=== PATIENT | male | born 1985 | race Caucasian/White ===

== ENCOUNTER 2022-10-16 01:14 | Outpatient (CLI) | payer MEDICAID, SELFPAY ==
[2022-10-16] MEDS: Barium Sulfate 2% W/V-Berry Smoothie 450 ML BTL PO ×2 (09:04→09:05)
--- NOTE | 2022-10-16 11:04 | DI.CT_ITS ---
Exam(s) CT ABDOMEN PELVIS W EXAM: CT ABDOMEN PELVIS W CLINICAL HISTORY: LLQ ABD PAIN, R10.32,PALPABLE DEFECT, ? HERNIA TECHNIQUE: Imaging Protocol: Axial computed tomography images with coronal and sagittal reformatted images were created and reviewed CONTRAST MATERIAL: Intravenous: Omnipaque 350 Contrast volume:100 mL Oral: Yes COMPARISON: No exams were available for comparison FINDINGS: ABDOMEN: Lung Bases: Normal where visualized. Liver: There is diffuse decreased attenuation of the liver suggesting fatty infiltration. There is f ocal fatty sparing adjacent to the gallbladder. The liver measures 20 cm long. No measurable mass. Portal, Superior Mesenteric, and Splenic Veins: Unremarkable. Gallbladder and Biliary Tract: No radiodense calculus or dilation. Pancreas: Normal density, no abnormal calcifications or inflammatory process. Spleen: Normal. Adrenals: No masses seen. Kidneys: Normal size, contour and axis. No radiodense stones or obstructive uropathy. No masses seen. There is a circum aortic left renal vein. Abdominal Aorta: Abdominal portion non-dilated. Minimal atherosclerosis. Bowel: There is diverticulosis in the colon but no evidence of acute diverticulitis. No evidence of bowel obstruction or bowel wall thickening. Appendix is unremarkable. Peritoneal Cavity: No ascites, collection or mesenteric inflammatory response. No free air. Lymph Nodes: Within normal limits. Bones: Within normal limits for the patient's age. Soft Tissues: There is a fat containing umbilical hernia. There do appear to be small fat containing inguinal hernias. No anterior abdominal wall hernia or soft tissue mass is appreciated. PELVIS: Bladder: Symmetric distention, no gross wall thickening. Reproductive Organs: Unremarkable as visualized. Lymph Nodes: Within normal limits. Bones: Within normal limits for the patient's age. IMPRESSION: 1. No evidence of an anterior abdominal wall mass. 2. Small fat containing umbilical hernia. 3. Hepatic steatosis and hepatomegaly. 4. Colonic diverticulosis but no evidence of acute diverticulitis. RADIATION DOSE DELIVERED: 1,905.69mGy.cm Total DLP DATA REPOSITORY: All CT scans at this facility are submitted to the National Radiology Data Registry (NRDR) Dose Index Registry (DIR) with the [employer] (ACR). RADIATION OPTIMIZATION: All CT scans at this facility use at least one of these dose optimization te chniques: automated exposure control; mA and/or kV adjustment per patient size (includes targeted exa ms where dose is matched to clinical indication); or iterative reconstruction.
[2022-10-16] MEDS: Omnipaque 350 MG/ML 500 ML BTL-Imaging package IJ (11:08)
== END 2022-10-16 01:34 ==
LOC: DI 01:14
PROVIDERS: PCP Nurse Practitioner; Visit Provider Family Medicine
DX: R10.32 Left lower quadrant pain (principal); K76.0 Fatty (change of) liver, not elsewhere classified; R16.0 Hepatomegaly, not elsewhere classified; K42.9 Umbilical hernia without obstruction or gangrene
CPT/HCPCS: 74177

== ENCOUNTER 2022-10-23 15:34 | Outpatient (REF) | payer MEDICAID, SELFPAY ==
[2022-10-23 14:14] LABS: HGB 15.9 g/dL (13.5-17.5); MCH 28.7 pg (27.0-33.0); MCHC 33.1 % (32.0-36.0); MCV 87 fL (80-95); MPV 11.7 fL (8.0-11.0); Platelet Count 255 10^3/uL (130-400); RBC 5.54 10^6/uL (4.36-5.78); RDW 13.8 % (11.8-14.1); RDW-SD 43.9 fL
[2022-10-23 14:30] LABS: Hemoglobin A1C 5.6 % (<5.7)
[2022-10-23 14:36] LABS: ALT 56 U/L (16-63); AST 29 U/L (15-37); Albumin 4.4 g/dL (3.4-5.0); Alkaline Phosphatase 95 U/L (46-116); Anion Gap 8.5 mmol/L (3-11); BUN 11 mg/dL (7-18); Bilirubin, Total 0.7 mg/dL (0.2-1.0); CO2 27.5 mmol/L (21.0-32.0); CREATININE 0.9 mg/dL (0.70-1.30); Calcium 9.6 mg/dL (8.5-10.1); Calculated LDL 144 mg/dL (<100); Chloride 105 mmol/L (98-107); Cholesterol 218 mg/dL (<200); Estimated GFR 112.81 (mL/min/1.73m2); Glucose 105 mg/dL (74-106); HDL Cholesterol 39 mg/dL (40-60); Lipase 42 U/L (16-77); Potassium 4.2 mmol/L (3.5-5.1); Sodium 141 mmol/L (136-145); TSH (W/Ref FT4) 3.66 uIU/mL (0.36-3.74); Total Protein 7.8 g/dL (6.4-8.2); Triglyceride 175 mg/dL (<150)
[2022-10-23 14:50] LABS: C-Reactive Protein 0.89 mg/dL (0.0-0.3)
[2022-10-27 12:20] LABS: IgA <13 mg/dL (85-499); Interpretation (See Note); Tissue Transglutaminase IgA <1.2 U/mL (<4.0)
== END 2022-10-23 15:35 | disposition home or self-care (01) ==
LOC: NCHCN 15:34
PROVIDERS: PCP Nurse Practitioner; Visit Provider Family Medicine
DX: R10.32 Left lower quadrant pain (principal); K57.90 Diverticulosis of intestine, part unspecified, without perforation or abscess without bleeding; R63.4 Abnormal weight loss; R79.89 Other specified abnormal findings of blood chemistry
CPT/HCPCS: 80053; 80061; 82784; 83516; 83690; 85027; 83036; 84443; 86140

== ENCOUNTER 2022-11-21 06:15 | Day surgery (SDC) | payer MEDICAID, SELFPAY ==
--- NOTE | 2022-11-20 19:37 | W.PM.DSUDISC ---
Date of service: 11/21/22 Time of Service: 09:13 Discharge Plan Disposition Patient Disposition: Home Condition: Good Discharge Details Reason For Visit: Ventral hernia repair Attending Provider: Brennan Jama Primary Care Provider: Ayesha Giordano Home Meds and New Rx's Prescriptions: New tramadol 100 mg tablet 100 mg PO BID PRN (Reason: pain) Qty: 10 0RF Rx Instructions: Take 1 tablet by mouth up to every 12 hours if needed for severe pain. This medication can be broken in half if it is too strong. Do not drive while using this medication. Continued One-A-Day Men's 50 Plus 400-20-370 mcg tablet 1 tab PO DAILY mecobalamin (vitamin B12) 5,000 mcg tablet,disintegrating 5,000 mcg PO DAILY cholecalciferol (vitamin D3) 75 mcg (3,000 unit) tablet 75 mcg PO DAILY ibuprofen 800 MG tablet 800 mg PO TID PRNQty: 30 0RF Discharge Instructions Instructions: Ventral Hernia (GEN) Additional Instructions: Noam, we are able to repair your abdominal wall hernias today without any difficulty. As we talked about in the office, you actually had 2 hernias. One was at your bellybutton, one was slightly above this. They were repaired as a single unit with a permanent mesh implanted behind your rectus muscles. Expect to be sore in the coming days. I have provided a prescription for tramadol to help with your postoperative pain. Please follow the attached instructions with regards to your incision. The dressing that you have on top has a little motor that apply some negative pressure and suction. Please contact the office if you notice any problems with this dressing. It is okay to shower with this. If you have any questions in the meantime, please do not hesitate to let me know. 1. Resume all of your medications. 2. Ice packs and heating pads are fine to use for pain. 3. Okay to use tylenol and ibuprofen over the counter as needed. Use tramadol as needed for severe pain. 4. Leave bandage in place. 5. Shower with warm soapy water. Pat dry. 6. No soaking or tub baths until I see you in the office. 7. No heavy lifting until I see you in the office. 8. Call the office (or go directly to the emergency room after hours) if you notice any of the following: Develop chills (warm to touch), or if you have a thermometer and your temperature is above 101 Difficulty breathing or difficultly swallowing Persistent vomiting Any bleeding ? exceeding one tablespoon 9. Call your physician if the site where your intravenous was started becomes red, swollen, painful, and warm to touch. Referrals: Brennan Jama MD [ [facility] STAFF PHYSICIAN] - (November 28 at 11 AM with myself or Dr. Boss for ava removal) Activity:: No heavy lifting Remove Dressings/Wound Care:: 24 hours Shower/Bathe:: 24 hours Diet:: As Tolerated Discharge Orders Discharge Orders: Discharge Order (Routine); Ordered 11/20/22 Ordered By: Brennan Jama DS: Diagnosis Discharge Diagnosis (1) Ventral hernia: Status: Acute Asessment and Plan: Routine postoperative visit on November 28 for AVA removal
--- NOTE | 2022-11-20 19:39 | ROE_ITS ---
Date of service: 11/21/22 Time of Service: 09:08 Operative Note Operative Note DATE OF PROCEDURE: 11/21/22 PRE-OP DIAGNOSIS: Ventral hernia and umbilical hernia POST-OP DIAGNOSIS: same PROCEDURE: Open ventral and umbilical hernia repairs with retrorectus mesh SURGEON: Brennan Jama [employer] [employer]ICE WORKER: Princess Collins ANESTHESIA TYPE: Local By Surgeon and General LMA/ETT Refer to Anesthesia Record ESTIMATED BLOOD LOSS: 50 PATHOLOGY: none sent COMPLICATIONS: None Patient was transported to: PACU Patient's condition: stable Implants: Bard polypropylene mesh Indications: Noam is a 36-year-old male with a painful ventral hernia that has been increasing in size. Additionally he has an umbilical hernia associated with this Findings: 1 cm umbilical hernia, 2 cm ventral hernia Procedure Description: After the induction of general endotracheal anesthesia, the anesthesia team performed bilateral ultrasound-guided rectus blocks. Next, I prepped and draped the anterior abdominal wall in usual fashion. I made a midline incision and extended it down around the left side of the umbilicus. Careful dissection was used to lift the underside of the umbilicus off of an umbilical hernia defect. The hernia itself was carefully dissected down to the fascia. The greatest dimension of this hernia was about 1 cm. Once the umbilical hernia was freed up from the surrounding soft tissue it was reduced back down to the normal position. I continued this dissection cephalad along some normal-appearing midline fascia. Approximately 3 cm above the umbilical fascial defect was another midline fascial defect. This wound was larger. I would estimated about 2 cm in its greatest dimension. Again, careful dissection was used to free up the hernia sac from the surrounding soft tissues, as well as the fascial edge, and this was also reduced back down into the peritoneal space. Next, because of the proximity of these 2 defects, I opened the midline fascia along its length for accurate visualization. This created 1 midline defect. I then incised the rectus sheath, and carefully dissected the rectus muscle off the posterior fascial elements. Once this was completed, I closed the midline fascia with 2-0 PDS suture imbricating the weakened midline portion as well as the previously mentioned hernia sacs. I then used a Bard 3 x 6 cm polypropylene mesh in the retrorectus position. It was cut to shape. It was affixed to the fascia with interrupted Prolene stitches. I then reduced the rectus muscles back towards the midline overlying the mesh. I closed the anterior fascia defect with another line of running 2-0 PDS suture. Once this was complete, irrigated surgical field. It was hemostatic. I pexied the underside of the umbilicus back down towards the fascia for cosmesis. The subcuticular space was obliterated with interrupted Vicryl stitches. The skin was closed with a running subcuticular suture. A albert negative pressure wound dressing was used on top. The patient was then awakened from anesthesia and transferred to the postanesthesia care unit in good condition.
[2022-11-21] VITALS (12 sets, daily range): BP systolic 94–118; BP diastolic 51–80; PULSE 71–88; RESP 13–20; TEMP 36.1–36.7; O2SAT 84–96; BMI 38.5
[2022-11-21] MEDS: Gabapentin 300 MG CAP 600 MG PO (06:57)
[2022-11-21] MEDS: Celecoxib 200 MG CAP PO (06:58)
--- NOTE | 2022-11-21 07:01 | W.ANESPRE ---
General Info Date of Service Date Performed: 11/21/22 Height: 5 ft 8.25 in Weight: 115.8 kg Body Mass Index (BMI): 38.5 Surgical Procedure: Operation Date: 11/21/22 07:40 Proposed Procedure Side Surgeon p Herniorrhaphy Ventral Brennan Jama MD Meds Allergies and Home Medications Allergies Allergy/AdvReac Type Severity Reaction Status Date / Time No Known Drug Allergies Allergy Unknown Verified 11/21/22 06:30 Home Medication Medication Instructions Recorded ibuprofen 800 mg tablet 800 mg PO TID PRN #30 tabs 07/12/13 cholecalciferol (vitamin D3) 75 75 mcg PO DAILY 10/29/22 mcg (3,000 unit) tablet mecobalamin (vitamin B12) 5,000 5,000 mcg PO DAILY 10/29/22 mcg disintegrating tablet rzqmhbznllcy-ien-rvcbw acid-vit 1 tab PO DAILY 10/29/22 K-lycop 400 mcg-20 mcg-370 mcg tablet (One-A-Day Men's 50 Plus) Current Visit Medications: Current Medications Generic Name Dose Route Start Last Admin Trade Name Tomasq PRN Reason Stop Dose Admin Celecoxib 200 mg 11/21/22 06:00 Celecoxib 200 Mg Cap PO 11/21/22 23:59 PREOP ADIEL Gabapentin 600 mg 11/21/22 06:00 Gabapentin 300 Mg Cap PO 11/21/22 23:59 PREOP ADIEL Ringer's Solution 1,000 mls @ 80 mls/hr 11/21/22 06:00 IV 11/21/22 23:59 INFUSION ADIEL Cefazolin Sodium/Dextrose 2 gm in 50 mls @ 100 mls/hr 11/21/22 06:00 Ancef Duplex IVPB 11/21/22 23:59 PREOP ADIEL IV Miscellaneous Supplies 1 each 11/21/22 06:00 Iv Access IV 11/21/22 23:59 DIRECTED ADIEL Morphine Sulfate 4 mg 11/20/22 19:40 Morphine 4 Mg/Ml Syr IVP Q1H PRN PRN Sodium Chloride 0 ml 11/21/22 06:00 Normal Saline Flush 10 Ml Syr IV 11/21/22 23:59 PRN PRN Sodium Chloride 0 ml 11/21/22 06:00 Normal Saline 10 Ml Vial IJ 11/21/22 23:59 DIRECTED PRN Sterile Water 0 ml 11/21/22 06:00 Water,Injection,Sterile 10 Ml Vial IJ 11/21/22 23:59 DIRECTED PRN Tramadol HCl 100 mg 11/20/22 19:40 Tramadol 50 Mg Tab PO Q6H PRN PRN Pain PFSH Active Problems Active Problems: Problem Status Onset Code Ventral hernia K43.9 Medical History Medical History Comments:: laughing gas' with wisdom teeth extraction Surgical History Surgical History (Updated 11/21/22 @ 06:30 by Vida Servin) History of wisdom tooth extraction pt reports having laughing gas' Tobacco Smoking/Tobacco Use Status: Never Alcohol Alcohol Intake: current Alcohol intake frequency: holidays/special occasions only Substance Use Substance use: Never Substance use type: does not use Vital Signs and Lab Results Vital Signs Most Recent Vital Signs in EMR: Most Recent Vital Signs Temp Pulse Resp BP Pulse Ox 36.5 C 72 16 118/80 96 11/21/22 06:31 11/21/22 06:31 11/21/22 06:31 11/21/22 06:31 11/21/22 06:31 Lab Results Blood Type / Crossmatch: No Data to Display Complete Blood Count: White Blood Count 9.20 10^3/uL (4.4-10.8) 10/23/22 10:50 Red Blood Count 5.54 10^6/uL (4.36-5.78) 10/23/22 10:50 Hemoglobin 15.9 g/dL (13.5-17.5) 10/23/22 10:50 Hematocrit 48.0 % (40.0-50.0) 10/23/22 10:50 Platelet Count 255 10^3/uL (130-400) 10/23/22 10:50 Complete Metabolic Panel: Sodium 141 mmol/L (136-145) 10/23/22 10:50 Potassium 4.2 mmol/L (3.5-5.1) 10/23/22 10:50 Chloride 105 mmol/L (98-107) 10/23/22 10:50 Carbon Dioxide 27.5 mmol/L (21.0-32.0) 10/23/22 10:50 BUN 11 mg/dL (7-18) 10/23/22 10:50 Creatinine 0.9 mg/dL (0.70-1.30) 10/23/22 10:50 Est GFR (CKD-EPI 2020) 112.81 (mL/min/1.73m2) 10/23/22 10:50 Calcium 9.6 mg/dL (8.5-10.1) 10/23/22 10:50 Albumin 4.4 g/dL (3.4-5.0) 10/23/22 10:50 Glucose 105 mg/dL (74-106) 10/23/22 10:50 Hemoglobin A1c 5.6 % (<5.7) 10/23/22 10:50 C-Reactive Protein 0.89 mg/dL (0.0-0.3) H 10/23/22 10:50 Liver Function Panel: Alanine Aminotransferase (ALT/SGPT) 56 U/L (16-63) 10/23/22 10:50 Aspartate Amino Transf (AST/SGOT) 29 U/L (15-37) 10/23/22 10:50 Coagulation Panel: No Data to Display Cardiac Panel: No Data to Display Arterial Blood Gas: No Data to Display Venous Blood Gas: No Data to Display Pancreas Panel: Lipase 42 U/L (16-77) 10/23/22 10:50 Thyroid Panel: Thyroid Stimulating Hormone (TSH) 3.66 uIU/mL (0.36-3.74) 10/23/22 10:50 Infectious Disease: No Data to Display Blood Cultures: No Data to Display Toxicology Panel: No Data to Display Anesthesia Assessment and Plan Anesthesia History Personal History: No History of General Anesthesia Family History: Family History Unknown Exercise Tolerance Exercise Tolerance: Metabolic Equivalents>4 Pertinent Negatives Pertinent Negatives: No Symptoms of GERD, No Major Cardiovascular Symptoms or Complaints, No Major Pulmonary Symptoms or Complaints and No History of CVA/TIA Cardiac & Pulmonary Exam Cardiac Exam: Normal S1/S2 Heart Sounds Pulmonary Exam: Clear Bilateral Breath Sounds Implantable Cardiac Device Does patient have a Pacemaker or an ICD?: No Airway Exam Known Difficult Airway: No Mallampati Class: 1 Mouth Opening: Normal (> 3cm) Thyromental Distance: Less than 3 cm Neck Range of Motion: Full ROM Neck Circumference: Thick Teeth Condition: Normal Dentition ASA Classification ASA Score: ASA 2 Emergency Case?: No NPO Status NPO Status: NPO Clears >2 hours, Solids >8 hours Anesthesia Plan Resuscitation Status: Full Code Anesthesia Technique: General Anesthesia Airway Planned: Endotracheal Tube Pain Management: Surgeon and patient request nerve block (Bilateral rectus sheath blocks) Monitors Used: Standard Monitors
[2022-11-21] MEDS: Lactated Ringers 1,000 ML 80 ML IV (07:10)
[2022-11-21] MEDS: ceFAZolin 2 GM/50 ML BAG IVPB (07:37)
--- NOTE | 2022-11-21 08:05 | W.ANESNERVE ---
Nerve Block Single Injection Procedure Date and Time Date Performed: 11/21/22 Procedure Start: 07:41 Location Where Procedure Performed Procedure Location: Operating Room Procedure Stop: 07:48 Reason Performed: Postoperative Analgesia Requesting Provider: Brennan Jama Timeout Performed Timeout Performed: Yes Monitoring Used ECG, Blood Pressure, SpO2, ETCO2 and See EMR for corresponding vital signs Sterility Sterility: Hand Hygiene, Surgical Cap, Surgical Mask, Sterile Gloves, Sterile Drape/Sheet and Chlorhexidine Sedation Given During Procedure Sedation Given (Indicate Dose Given): No Sedation given Patient Mental Status Patient Mental Status: Performed under general anesthesia Nerve Block 1st Nerve Block: Laterality: Bilateral Block Type: Rectus Sheath (Bilateral) Ultrasound Image Saved?: Yes Needle / Catheter Used: 120mm SonoPlex II Local Anesthetic Bolus (Indicate Dose Given): Injected in 3-5ml increments after negative blood aspiration, Half of Total block solution given into each side and Bupivacaine 0.5% Dose:: 40 ml Additives (Indicate Dose Given): None Ultrasound: Sterile probe cover and gel used Nerve Stimulator: Not Used Paresthesia: None Procedure Tolerated: No Complications Procedure Outcome: Successful Performed By: Pallavi Kam
[2022-11-21] MEDS: Bupivacaine 0.5% Pres-Free W/EPI 30 ML VIAL (08:06)
--- NOTE | 2022-11-21 10:59 | W.ANESPOSTOP ---
Postoperative Evaluation Date, Time and Location Date Performed: 11/21/22 Time Performed: 10:59 Patient Location: Day Surgery Unit Vital Signs Most Recent Imported Vital Signs: Most Recent Vital Signs Temp Pulse Resp BP Pulse Ox 36.7 C 80 19 108/62 93 11/21/22 10:35 11/21/22 10:35 11/21/22 10:35 11/21/22 10:35 11/21/22 10:35 Pain Score Most Recent Pain Score: Most Recent Pain Score Pain Level 4 11/21/22 10:35 Assessment Mental Status: Awake (Alert & Oriented to Patient Baseline) Airway and Respiratory Function: Patent airway with normal (patient baseline) respiratory exam Cardiovascular Function: Hemodynamically Stable Hydration Status: Adequately Hydrated Nausea & Vomiting: No Nausea or Vomiting Pain: Pain is tolerable per patient Peripheral Nerve Block: Regional nerve block not resolved at time of post operative discharge
[2022-11-21] MEDS: traMADol 50 MG TAB 100 MG PO (11:03)
== END 2022-11-21 12:55 | disposition home or self-care (01) ==
PROVIDERS: PCP Family Medicine; Visit Provider Surgery
PROC: (CPT 49593; principal; 2022-11-21 07:30)
DX: K43.9 Ventral hernia without obstruction or gangrene (principal); K42.9 Umbilical hernia without obstruction or gangrene
CPT/HCPCS: 49593; 76942; C1781; J0690; J1100; J1885; J2405

== ENCOUNTER 2022-11-22 20:39 | Emergency (ER) | payer MEDICAID, SELFPAY ==
[2022-11-22] VITALS (20 sets, daily range): BP systolic 102–126; BP diastolic 45–69; PULSE 62–78; RESP 14–20; TEMP 37.1; O2SAT 91–99
--- NOTE | 2022-11-22 20:30 | RT.EKG_ITS ---
APPROVED REPORT Exam: Resting ECG Reason for Exam: syncope Patient Location: E HR:78 bpm ECG Measurements Heart Rate 78 AXIS MD 126 P 19 QRSd 100 QRS -4 QT 381 T 41 QTc 435 Conclusion Sinus rhythm...normal P axis, V-rate 60- 99 sinus rhythm, left axis, normal intervals, non ischemic
--- NOTE | 2022-11-22 20:45 | DI.CT_ITS ---
Exam(s) CT ABDOMEN PELVIS W EXAM: CT ABDOMEN PELVIS W CLINICAL HISTORY: recent hernia surgery, syncope. TECHNIQUE: Imaging Protocol: Axial computed tomography images with coronal and sagittal reformatted images were created and reviewed CONTRAST MATERIAL: Intravenous: Omnipaque-350 100cc Oral: None COMPARISON: CT CT ABDOMEN PELVIS W from 10/16/2022 FINDINGS: VISUALIZED LUNG BASES: Mild infiltrates both lung bases. No pleural effusions. No pneumothorax.. B ilateral symmetrical gynecomastia is noted. ABDOMEN: There is no ascites. LIVER: Hepatic steatosis noted. No obvious focal hepatic lesions. Liver appears slightly prominent in size. No dilated intrahepatic ducts. GALLBLADDER/BILIARY: No obvious gallbladder pathology. CBD is not dilated. PANCREAS: No evidence of pancreatic mass nor dilatation of the pancreatic duct. SPLEEN: Mild splenomegaly. No intrasplenic lesions. Splenic and portal veins are patent. ADRENALS: There are no significant adrenal masses. KIDNEYS:No cysts evident. No solid renal masses. No calculi nor hydronephrosis.. ABDOMINAL AORTA: Abdominal aorta is not enlarged. Retroaortic left renal vein noted. LYMPH NODES:There is no retroperitoneal nor paraaortic adenopathy. ABDOMINAL WALL/GI: There is subcutaneous midline air and abnormal density in the periumbilical region measuring approximately 3.5 x 2.8 by 4.0 cm, most probably infectious/post operative. Subjacent str eaking in the anterior intra-abdominal mesentery noted. PELVIS: GI: No evidence of appendicitis.Sigmoid diverticulosis. No obvious acute diverticulitis. LYMPH NODES: There is no intrapelvic nor inguinal adenopathy. REPRODUCTIVE: Prostate not enlarged. Seminal vesicles unremarkable. URINARY BLADDER: No calculi nor obvious masses evident OSSEOUS: Minimal height loss of superior endplate T8, age indeterminate. There is also a small Schmo rl's node invagination at superior endplate at this level. IMPRESSION: 1. Subcutaneous air and soft tissue stranding and fluid collection in the umbilical region related to recent surgery as described above. There also mild increased markings in these subjacent intraperit murillo mesenteric fat at this level. First consideration is for abscess. 2. Hepatic steatosis, mild hepatomegaly and mild splenomegaly. There is no ascites. 3. Mild height loss of superior endplate of T8, age indeterminate. Correlation with any tenderness o sonia this area is recommended. RADIATION DOSE DELIVERED: 1,776.29mGy.cm Total DLP DATA REPOSITORY: All CT scans at this facility are submitted to the National Radiology Data Registry (NRDR) Dose Index Registry (DIR) with the [employer] (A[employer]). RADIATION OPTIMIZATION: All CT scans at this facility use at least one of these dose optimization te chniques: automated exposure control; mA and/or kV adjustment per patient size (includes targeted exa ms where dose is matched to clinical indication); or iterative reconstruction.
--- NOTE | 2022-11-22 20:45 | DI.RAD_ITS ---
Exam(s) XR SHOULDER LT COMPLETE 2+V EXAM: XR SHOULDER LT COMPLETE 2+V CLINICAL HISTORY: fall. TECHNIQUE: 2D digital imaging was performed. COMPARISON: No exams were available for comparison FINDINGS: Five views: No evidence of fracture or dislocation or abnormal soft tissue calcifications. Bone density normal. No osseous lesions. AC joint also unremarkable. Clavicle appears intact. IMPRESSION: No acute osseous findings in the shoulder. DATA REPOSITORY: RADIATION DOSE DELIVERED:
--- NOTE | 2022-11-22 20:58 | DI.CT_ITS ---
Exam(s) CT HEAD CERVICAL SPINE WO EXAM: CT HEAD CERVICAL SPINE WO CLINICAL HISTORY: fall into wall. TECHNIQUE: Imaging Protocol: Axial computed tomography images with coronal and sagittal reformatted images were created and reviewed COMPARISON: No exams were available for comparison FINDINGS: BRAIN: There are no skull fractures nor fluid in the visualized paranasal sinuses. There is no evidence of intracranial hemorrhage, mass effect, or shift of midline structures. There are no extra-axial fluid collections. The ventricles are not enlarged or shifted and there is no blo od within the ventricular system nor within the basal cisterns. CERVICAL SPINE: There is an acute appearing fracture through the left articular process of C5 which also involves the left lamina extends towards but not truly into the left pedicle nor into the ipsilateral foramen tra nsversarium. Small bone fragment projects into the posterosuperior aspect of the exiting left neural foramen.Predominant involvement is in the inferior articular process. There is no facet malalignmen t at this level nor elsewhere in the cervical spine. No significant listhesis. No prominent disc sp schuyler narrowing. Mild disc space narrowing at C5-6 noted. IMPRESSION: No acute intracranial findings on this noninfused CT scan of the brain. There is an acute comminuted fracture of the inferior left articular process of C5. No facet malalig nment. Small bony fragment extends into the posterior superior aspect of the ipsilateral left neural foramen. No other fractures identified. First read by [facility]. RADIATION DOSE DELIVERED: 1,796.81mGy.cm Total DLP DATA REPOSITORY: All CT scans at this facility are submitted to the National Radiology Data Registry (NRDR) Dose Index Registry (DIR) with the [employer] (ACR). RADIATION OPTIMIZATION: All CT scans at this facility use at least one of these dose optimization te chniques: automated exposure control; mA and/or kV adjustment per patient size (includes targeted exa ms where dose is matched to clinical indication); or iterative reconstruction.
--- NOTE | 2022-11-22 21:01 | ED.GENADUL_ITS ---
Discharge Plan Disposition Patient Disposition: Home Discharge Details Chief Complaint: Dizzy/Sync Clinical Impression: C5 vertebral fracture Primary Care Provider: Ayesha Giordano ED Provider: Kiel Gross Home Meds and New Rx's Prescriptions: No Action One-A-Day Men's 50 Plus 400-20-370 mcg tablet 1 tab PO DAILY mecobalamin (vitamin B12) 5,000 mcg tablet,disintegrating 5,000 mcg PO DAILY cholecalciferol (vitamin D3) 75 mcg (3,000 unit) tablet 75 mcg PO DAILY ibuprofen 800 MG tablet 800 mg PO TID PRNQty: 30 0RF tramadol 100 mg tablet 100 mg PO BID PRN (Reason: pain) Qty: 10 0RF Rx Instructions: Take 1 tablet by mouth up to every 12 hours if needed for severe pain. This medication can be broken in half if it is too strong. Do not drive while using this medication. Discharge Instructions Additional Instructions: We will need to wear your cervical spine collar for 6 to 8 weeks, please follow closely with [facility] neurosurgical team next week. Please return to the emergency department for any worsening symptoms which may include but are not limited to weakness numbness tingling falls balance issues worsening pain or other abnormal symptoms. Medical Decision Making 36-year-old male presents after 2 syncopal episodes today patient is currently postop from ventral hernia repair, both events happened when going from a seated to a standing position and trying to move. During the second event patient passed out into the wall, sustaining abrasion to frontal scalp. Patient does have neck discomfort and frontal headache. No chest pain no abdominal pain no trouble breathing. EKG normal sinus rhythm, nonischemic. Moving all extremities, slight discomfort to left shoulder. Abdomen soft nontender nondistended, vacuum dressing clean dry intact. Likely syncopal episode in the setting of orthostasis given recent surgery must also consider hypovolemia related to blood loss lower suspicion for intra-abdominal bleeding or infection at this time given mechanism and symptomatology will obtain CT head CT C-spine, patient is in c-collar, will obtain CT abdomen pelvis with IV contrast to assess for postop complication such as internal dehiscence or bleeding lower suspicion for infection. Will provide fluid bolus and antiemetics. Disposition pending reassessment of symptoms 00: 41 patient resting comfortably no acute distress. Evidence of mildly displaced comminuted inferior articular process of C5. Patient remains neurologically intact with full strength and sensation upper and lower ex tremities. Hemodynamically stable. Discussed case with neurosurgery at [facility] team requesting CTA neck as well as standing AP lateral x-ray of cervical spine patient remained in cervical collar, if stable appearing images will be in collar for 6 to 8 weeks with close follow-up at [facility]. 4: 48 patient resting comfortably neurologically intact. Reviewed follow-up imaging with Dr. Snyder of neurosurgery at [facility] patient cleared to be discharged home in c-collar for 6 to 8 weeks, will follow closely at [facility]. Home care instructions and return precautions given to patient and family. HPI General Date/Time Provider Initiated Documentation: 11/22/22 20:40 . HPI Narrative: 36-year-old male recent ventral hernia repair presents after 2 syncopal episodes today, both when going from a seated to a standing position or trying to move. The second fall patient fell into a wall and broke through the drywall with his head, brief loss of consciousness during syncopal episode with return to baseline shortly thereafter. Pain to left shoulder pain to forehead. No abd ominal pain or chest pain no trouble breathing. Related Data Home Medications Medication Instructions Recorded Confirmed ibuprofen 800 mg tablet 800 mg PO TID PRN #30 tabs 07/12/13 11/22/22 cholecalciferol (vitamin D3) 75 75 mcg PO DAILY 10/29/22 11/22/22 mcg (3,000 unit) tablet mecobalamin (vitamin B12) 5,000 5,000 mcg PO DAILY 10/29/22 11/22/22 mcg disintegrating tablet [id number] acid-vit 1 tab PO DAILY 10/29/22 11/22/22 K-lycop 400 mcg-20 mcg-370 mcg tablet (One-A-Day Men's 50 Plus) tramadol 100 mg tablet 100 mg PO BID PRN pain #10 tabs 11/21/22 11/22/22 Previous Rx's Medication Instructions Recorded ibuprofen 800 mg tablet 800 mg PO TID PRN #30 tabs 07/12/13 tramadol 100 mg tablet 100 mg PO BID PRN pain #10 tabs 11/21/22 Allergies Allergy/AdvReac Type Severity Reaction Status Date / Time No Known Drug Allergies Allergy Unknown Verified 11/22/22 21:02 General Stated Complaint: Dizzy/Sync JALEN: 3 Review of Systems Narrative: Review of Systems Constitutional: negative Eyes: negative ENT: negative Cardiovascular: Syncope Respiratory: negative Gastrointestinal: negative : negative Musculoskeletal: Shoulder pain Skin: negative Neurologic: Headache Psych: negative PFSH All Active Problems (Updated 11/23/22 @ 04:53 by Kiel Gross MD) Ventral hernia (Acute) C5 vertebral fracture (Acute) Medical History (Updated 11/23/22 @ 04:53 by Kiel Gross MD) Anesthesia 11/21/22 postop hernia repair in PACU required 15L supplemental O2 via oxymask for hypoxia low 80s. Asthma as child COVID 2 times Surgical History History of wisdom tooth extraction pt reports having laughing gas' Social History Smoking/Tobacco Use Status: Never Smoking risk assessment performed?: Yes Alcohol Intake: current Alcohol Intake frequency: holidays/special occasions only Drug use: Never Substance use type: does not use Do you feel safe at home: Yes Do you feel safe in your relationship?: Yes Exam Narrative Exam Narrative: Physical Examination General: alert, awake, cooperative, resting comfortably, no acute distress HEENT: normocephalic, superficial linear abrasion approximately 1.5 cm to frontal scalp hemostatic no foreign body; PERRL, EOM intact, conjunctiva normal; no nasal discharge; moist mucous membranes, oral and pharyngeal mucosa normal, tolerating secretions Neck: supple, trachea midline; in C-collar Chest: normal to inspection Respiratory: normal respiratory effort, speaking in full sentences, clear to auscultation, no wheezing, rales or rhonchi Cardiac: regular rate, regular rhythm, S1S2 intact, no murmurs rubs or gallops GI: abdomen soft, non-tender, non-distended; no palpable mass or hepatosplenomegaly; midline ventral hernia surgical incision dressed in vacuum dressing, clean dry intact Skin: no lesions, rashes or trauma appreciated Neuro: AAOx3, normal speech, moving all extremities Extremities: Moving all extremities, mild left shoulder discomfort to palpation Psych: Appropriate mood and affect Course Vital Signs Vital signs: Vital Signs Temperature 37.1 C 11/22/22 20:47 Pulse 76 11/22/22 20:47 Respiratory Rate 20 11/22/22 20:47 Blood Pressure 126/69 11/22/22 20:47 Pulse Oximetry 99 11/22/22 20:47 Temperature 37.1 C 11/22/22 20:47 Temperature Source Oral 11/22/22 20:47 Pulse 76 11/22/22 20:47 Respiratory Rate 20 11/22/22 20:47 Blood Pressure 126/69 11/22/22 20:47 Blood Pressure Position Supine 11/22/22 20:47 Pulse Oximetry 99 11/22/22 20:47 Oxygen Delivery Method Room Air 11/22/22 20:47 Oxygen Flow Rate 0 11/22/22 20:47 Pain Level 7 11/22/22 20:47
[2022-11-22 21:08] LABS: Abs Immature Grans 0.11 10^3/uL (0.0-0.06); Absolute Basophil Count 0.04 10^3/uL (0.0-0.2); Absolute Eosinophil Count 0.02 10^3/uL (0.0-0.7); Absolute Lymphocyte Count 2.15 10^3/uL (1.2-3.4); Absolute Monocyte Count 1.26 10^3/uL (0.1-0.8); Absolute Neutrophil Count 14.68 10^3/uL (1.2-6.7); Basophils % 0.2; Eosinophils % 0.1; HCT 45.9 % (40.0-50.0); HGB 15.3 g/dL (13.5-17.5); Immature Grans % 0.6; Lymphocytes % 11.8; MCH 29.1 pg (27.0-33.0); MCHC 33.3 % (32.0-36.0); MCV 87 fL (80-95); MPV 10.6 fL (8.0-11.0); Monocytes % 6.9; Neutrophils % 80.4; Platelet Count 279 10^3/uL (130-400); RBC 5.25 10^6/uL (4.36-5.78); RDW 13.8 % (11.8-14.1); RDW-SD 44.2 fL; WBC 18.26 10^3/uL (4.4-10.8)
[2022-11-22] MEDS: Ondansetron 4 MG/2 ML VIAL IVP (21:10)
[2022-11-22] MEDS: Normal Saline 1,000 ML 1000 ML IV (21:11)
[2022-11-22 21:23] LABS: ALT 39 U/L (16-63); AST 23 U/L (15-37); Albumin 3.9 g/dL (3.4-5.0); Alkaline Phosphatase 83 U/L (46-116); Anion Gap 7.3 mmol/L (3-11); BUN 14 mg/dL (7-18); Bilirubin, Total 0.5 mg/dL (0.2-1.0); CO2 29.7 mmol/L (21.0-32.0); CREATININE 1.2 mg/dL (0.70-1.30); Calcium 9.5 mg/dL (8.5-10.1); Chloride 102 mmol/L (98-107); Estimated GFR 79.88 (mL/min/1.73m2); Glucose 188 mg/dL (74-106); Potassium 3.8 mmol/L (3.5-5.1); Sodium 139 mmol/L (136-145); Total Protein 7.7 g/dL (6.4-8.2)
[2022-11-22] MEDS: Omnipaque 350 MG/ML 100 ML BTL IJ (22:48)
[2022-11-22] MEDS: Normal Saline - Diluent 50 ML VIAL IJ (22:48)
--- NOTE | 2022-11-22 23:38 | DI.VRAD_ITS ---
PROCEDURE INFORMATION: Exam: XR Left Shoulder Exam date and time: 11/22/2022 11:09 PM Age: 36 years old Clinical indication: Other: Fall TECHNIQUE: Imaging protocol: Radiologic exam of the left shoulder. Views: 2 or more views. COMPARISON: CT HEAD CERVICAL SPINE WO 11/22/2022 10:52 PM FINDINGS: Bones/joints: No acute fracture or dislocation is seen at the left shoulder. Soft tissues: No gross focal soft tissue abnormality is demonstrated. IMPRESSION: No acute fracture or dislocation seen at the left shoulder. Dictated and Authenticated by: Matias Rivera MD. Ordering:NOAH Dyson MD
--- NOTE | 2022-11-22 23:47 | DI.VRAD_ITS ---
PROCEDURE INFORMATION: Exam: CT Abdomen And Pelvis With Contrast Exam date and time: 11/22/2022 10:59 PM Age: 36 years old Clinical indication: Other: Fall, recent hernia surg TECHNIQUE: Imaging protocol: Computed tomography of the abdomen and pelvis with contrast. Contrast material: 350; Contrast volume: 100 ml; Contrast route: INTRAVENOUS (IV); COMPARISON: CT ABDOMEN PELVIS W 10/16/2022 11:05 AM FINDINGS: Limitations: Extensive streak artifact, created largely by arm positioning. Lungs: Mild dependent atelectasis at the lung bases. Pleural spaces: Small bilateral pleural effusions. Liver: Liver partially obscured by streak artifact but grossly intact. Diffuse fatty infiltration of the liver. Gallbladder and bile ducts: Gallbladder partially collapsed. No calcified gallstones seen. No biliary dilatation. Pancreas: Normal appearing pancreas. Spleen: Splenomegaly, 15 cm craniocaudal dimension. Adrenal glands: Normal appearing adrenal glands. Kidneys and ureters: Normal appearing kidneys. No hydronephrosis. No obstructing ureteral stones. Stomach and bowel: No oral contrast. Stomach partially distended with ingested material and gas. No small bowel dilatation to suggest obstruction. Diverticulosis through the distal transverse colon, descending colon, and sigmoid colon but no evidence of diverticulitis or colitis. Appendix: Normal appendix. Intraperitoneal space: No gross ascites. Small focus of extraluminal gas at the umbilicus. Recent surgery by report. Vasculature: Normal caliber abdominal aorta. Circumaortic left renal vein, anatomic variant. Lymph nodes: No pathologically enlarged mesenteric, retroperitoneal, or pelvic sidewall lymph nodes. Urinary bladder: Normal appearing urinary bladder. Reproductive: Normal-appearing prostate gland and seminal vesicles. Bones/joints: T8-superior endplate compression fracture deformity with mild loss of central vertebral height, new since the comparison exam from October 16, 2021 in keeping with an acute-subacute fracture. Small Schmorl's nodes at several lower thoracic levels. No acute fracture seen among the bones of the abdomen or pelvis. Soft tissues: Mild symmetric gynecomastia. Subcutaneous soft tissue gas, subcutaneous fat stranding, and fluid at the umbilicus in keeping with the provided history of recent surgery. Hazy fat stranding and a small focus of extraluminal gas in the subjacent omentum, images 55-69 of series 4, probably edema/contusion from the recent surgery although a region of fat ischemia could have a similar appearance. IMPRESSION: 1. Acute-subacute superior endplate compression fracture deformity at T8 with mild loss of anterior and central vertebral height, new since the recent comparison exam from October 16, 2021. Otherwise, no acute fracture seen. 2. No acute visceral injury seen in the abdomen or pelvis. 3. Subcutaneous soft tissue gas, subcutaneous fat stranding, and fluid at the umbilicus in keeping with the provided history of recent surgery. Hazy fat stranding and a small focus of extraluminal gas in the subjacent omentum, probably edema/contusion from the recent surgery although a region of fat ischemia could have a similar appearance. 4. Diffuse fatty infiltration of the liver. 5. Splenomegaly, 15 cm. Dictated and Authenticated by: Matias Rivera MD. Ordering:NOAH Dyson MD
--- NOTE | 2022-11-22 23:50 | DI.VRAD_ITS ---
Addendum created by Franki Winston MD on 11/22/2022 11:53:09 PM EDT: THIS REPORT CONTAINS FINDINGS THAT MAY BE CRITICAL TO PATIENT CARE. The findings were verbally communicated via telephone conference with Kiel Gross at 11:53 PM EDT on 11/22/2022. The findings were acknowledged and understood. Initial report created on 11/22/2022 11:49:46 PM EDT: PROCEDURE INFORMATION: Exam: CT Head Without Contrast Exam date and time: 11/22/2022 10:52 PM Age: 36 years old Clinical indication: Other: Fall, syncope TECHNIQUE: Imaging protocol: Computed tomography of the head without contrast. COMPARISON: No relevant prior studies available. FINDINGS: Brain: Focal encephalomalacia involves cortex and subcortical white matter in the right frontal opercular region and cerebral sulci show bilateral symmetry throughout the remainder of both cerebral hemispheres with no supratentorial mass or mass effect detected. Brainstem and cerebellum are unremarkable. There is no evidence of acute transcortical infarction or recent intracranial hemorrhage. Cerebral ventricles: Ventricular and cisternal spaces are normal in size and configuration and there is no midline shift or hydrocephalus seen. Paranasal sinuses: Grossly clear throughout. Mastoid air cells: Grossly clear bilaterally. Bones/joints: Bony calvarium and skull base are intact and no acute fractures are detected. Soft tissues: Unremarkable. IMPRESSION: Focal encephalomalacia in the right frontal opercular region could relate to previous trauma or ischemic insult and correlation with clinical data is requested. There is no evidence of acute transcortical infarction, recent hemorrhage or hydrocephalus. PROCEDURE INFORMATION: Exam: CT Cervical Spine Without Contrast Exam date and time: 11/22/2022 10:52 PM Age: 36 years old Clinical indication: Other: Fall, syncope TECHNIQUE: Imaging protocol: Computed tomography of the cervical spine without contrast. COMPARISON: No relevant prior studies available. FINDINGS: Bones/joints: The craniocervical and atlantoaxial articulations are preserved and the odontoid process appears intact. There is gross preservation of vertebral body height throughout cervical levels with no vertebral body fractures or other significant subluxations detected. Acute fracture is seen involving the left inferior articular process of C5 with minimal displacement and comminution (see images 31-39 from series 15). No other acute fractures are detected involving the posterior elements at remaining cervical levels. Discs/Spinal canal/Neural foramina: Loss of disc space height with posterior osteocartilaginous ridging is most significant at C5-C6 resulting in canal narrowing and possible mass-effect upon the ventral cord which could be better evaluated with MRI. No severe bony foraminal narrowings are detected at cervical levels. Lungs: No pneumothorax or consolidation detected at the lung apices. Soft tissues: Unremarkable. IMPRESSION: 1. Acute fracture is seen involving the left inferior articular process of C5 with minimal displacement and comminution as above. No other acute fractures are detected involving the vertebral bodies or posterior elements at remaining cervical levels. 2. Posterior osteocartilaginous ridging at C5-C6 results in canal narrowing and possible mass-effect upon the ventral cord which could be better evaluated with MRI. Dictated and Authenticated by: Franki Winston MD. Ordering:NOAH Dyson MD
[2022-11-23] VITALS (13 sets, daily range): BP systolic 112–126; BP diastolic 55–66; PULSE 61–74; RESP 15–21; O2SAT 94–98
--- NOTE | 2022-11-23 00:36 | DI.RAD_ITS ---
Exam(s) XR CERVICAL SP GRIER TRAUMA 2-3V EXAM: XR CERVICAL SP GRIER TRAUMA 2-3V CLINICAL HISTORY: c5 fracture. TECHNIQUE: 2D digital imaging was performed. COMPARISON: No exams were available for comparison FINDINGS: 3 views Limited three-view study. Lateral view includes down to lower aspect of C5. C6 and C7 not well seen due to shoulders. There is a known fracture in the left inferior articular process of C5, difficult to appreciate on th sabi images. No other fractures identified. No cervical ribs. No abnormal soft tissue densities. D isc spaces exhibit normal height. IMPRESSION: As above. Please note that this patient has a known C5 fracture at the level of the left inferior ar ticular process. DATA REPOSITORY: RADIATION DOSE DELIVERED:
--- NOTE | 2022-11-23 00:36 | DI.CT_ITS ---
Exam(s) CT CAROTID NECK CTA EXAM: CT CAROTID NECK CTA CLINICAL HISTORY: cervical spine fracture, assessing vasculature. TECHNIQUE: Imaging Protocol: Axial CT angiography was performed with multi-slice acquisition and mu lti-planar and/or 3D reconstructions. CONTRAST MATERIAL: Intravenous: Omnipaque 350 Contrast volume:structured data in ml COMPARISON: No exams were available for comparison FINDINGS: There is a vertically orientated comminuted mildly oblique fracture line in the left inferior articul ar process of C5 vertebra. No facet malalignment evident. Fracture approaches the ipsilateral left pedicle does not enter the foramen transversarium and the left vertebral artery at this level appears unremarkable. CTA NECK W: AORTIC ARCH ANATOMY: The left vertebral artery originates as an independent vessel off of the aortic arch instead of originating in conventional fashion off of the left subclavian artery. Anterior circulation: Both common carotid arteries ascend with normal luminal diameters. No significant stenosis at their origins nor at the level of the carotid bifurcations. Both internal carotid arteries in the neck exh ibit no significant stenosis. No dissection. No intraluminal thrombus. Both are slightly tortuous in the upper neck prior to entering the skull base-carotid canals where they are demonstrated to be p atent. Posterior circulation: The right vertebral artery is dominant. In arranging 8 sing conventional fashion off of the right espitia bclavian artery. Both vertebral arteries ascend with normal luminal diameters and no evidence of dis section or intraluminal thrombus. At the skull base both vertebral arteries contribute to the format ion of the basilar artery. IMPRESSION: 1. Patent carotid and vertebral arteries in the neck. Right vertebral artery is dominant. 2. Left C5 inferior articular process comminuted fracture involving the lamina and approaching the pe dicle but without evidence of foraminal involvement. 3. No evidence of intraluminal thrombus nor stenosis. No dissection. First read by [facility]. RADIATION DOSE DELIVERED: 305.74mGy.cm Total DLP DATA REPOSITORY: All CT scans at this facility are submitted to the National Radiology Data Registry (NRDR) Dose Index Registry (DIR) with the [employer] (ACR). RADIATION OPTIMIZATION: All CT scans at this facility use at least one of these dose optimization te chniques: automated exposure control; mA and/or kV adjustment per patient size (includes targeted exa ms where dose is matched to clinical indication); or iterative reconstruction.
[2022-11-23] MEDS: Dexamethasone 10 MG/ML VIAL IVP (00:47)
[2022-11-23] MEDS: Normal Saline 1,000 ML 1000 ML IV (00:54)
[2022-11-23] MEDS: ACETAMINOPHEN 1,000 MG/100 ML BTL 400 MG IVPB (00:55)
[2022-11-23] MEDS: Omnipaque 350 MG/ML 100 ML BTL IJ (01:24)
[2022-11-23] MEDS: Normal Saline - Diluent 50 ML VIAL IJ (01:29)
--- NOTE | 2022-11-23 01:56 | DI.VRAD_ITS ---
PROCEDURE INFORMATION: Exam: XR Cervical Spine Exam date and time: 11/23/2022 1:15 AM Age: 36 years old Clinical indication: Other: C5 fracture requested by neuro TECHNIQUE: Imaging protocol: Radiologic exam of the cervical spine. Views: 2 or 3 views. COMPARISON: CT HEAD CERVICAL SPINE WO 11/22/2022 10:52 PM FINDINGS: Bones/joints: AP and lateral views of the cervical spine are submitted. The lateral view includes from the skull base through the upper endplate of C6. The remainder of C6 on the lower cervical spine are excluded from view. An acute fracture through the left inferior articular process at C5 with fracture extension into the pars interarticularis, pedicle, and lamina with inferior displacement of tiny bone fragments but no andreina associated facet dislocation is seen on the comparison CT exam. Mild irregularity of the posterior elements of C5 is demonstrated on the lateral view of the radiographic exam; however, overlapping of the left and right facet joints on the lateral view limits the evaluation. The C1-C5 vertebral bodies appear intact. No malalignment is seen. Soft tissues: A transverse linear foreign body seen on one of two AP views presumably represents a marker wire located outside the patient. No gross focal soft tissue abnormality is seen. IMPRESSION: 1. Known acute fracture through the left inferior articular process at C5 with fracture extension into the pars interarticularis, pedicle, and lamina with inferior displacement of tiny bone fragments but no andreina associated facet dislocation, demonstrated by the comparison CT exam, not well redemonstrated by the plain film views. 2. Linear transverse wirelike finding demonstrated on one of two AP views, probably a surgical marking wire. Dictated and Authenticated by: Matias Rivera MD. Ordering:NOAH Dyson MD
--- NOTE | 2022-11-23 02:33 | DI.VRAD_ITS ---
PROCEDURE INFORMATION: Exam: CTA Neck With Contrast Exam date and time: 11/23/2022 1:25 AM Age: 36 years old Clinical indication: Other: Cspine fracture, assessing vascular TECHNIQUE: Imaging protocol: Computed tomographic angiography of the neck with contrast. 3D rendering (Not supervised by radiologist): MIP and/or 3D reconstructed images were created by the technologist. Contrast material: 350; Contrast volume: 100 ml; Contrast route: INTRAVENOUS (IV); COMPARISON: CT HEAD CERVICAL SPINE WO 11/22/2022 10:52 PM FINDINGS: Right common carotid artery: No stenosis. No dissection or occlusion. Right internal carotid artery: No stenosis of the extracranial segment. No dissection or occlusion. Right external carotid artery: No occlusion or stenosis of the origin. Left common carotid artery: No stenosis. No dissection or occlusion. Left internal carotid artery: No stenosis of the extracranial segment. No dissection or occlusion. Left external carotid artery: No occlusion or stenosis of the origin. Right vertebral artery: Dominant. Mild calcified plaque in the V3 segment without evidence of stenosis. No dissection or occlusion. Left vertebral artery: Mild calcified plaque in the V3 segment without evidence of stenosis. No dissection or occlusion. Soft tissues: Normal. No significant soft tissue swelling. Bones/joints: Comminuted minimally displaced fracture again seen through the left C5 inferior arterial process and lamina without evidence of transverse foramen involvement. No dislocation. IMPRESSION: No evidence of arterial occlusion, stenosis, dissection or aneurysm. Left C5 inferior articular process fracture is unchanged. REFERENCES: NASCET CRITERIA. The degree of stenosis in the cervical segment of the internal carotid artery is based on NASCET criteria. Normal is no stenosis. Mild is less than 50% stenosis. Moderate is 50-69% stenosis. Severe is 70% to 99% stenosis. Total occlusion is no detectable patent lumen. Dictated and Authenticated by: Mayela Rock MD. Ordering:NOAH Dyson MD
--- NOTE | 2022-11-23 04:49 | NUR.NOTE ---
Referral sent to [facility] neuro Surgery for c5 fracture
--- NOTE | 2022-11-23 10:47 | NUR.NOTE ---
Nursing Note: Accessed patient chart to determine how many EKG orders were in the chart from the ED. There was an outstanding EKG in ordered status. There are no EKG's in the [facility] [employer] system that are outstanding. EKG order was deleted.
== END 2022-11-23 05:32 | disposition home or self-care (01) ==
PROVIDERS: Emergency Provider Emergency Medicine; PCP Family Medicine
DX: S12.490A Other displaced fracture of fifth cervical vertebra, initial encounter for closed fracture (principal); S00.01XA Abrasion of scalp, initial encounter; E86.1 Hypovolemia; J45.909 Unspecified asthma, uncomplicated; Z86.16 Personal history of COVID-19; Z98.890 Other specified postprocedural states; W19.XXXA Unspecified fall, initial encounter; W22.01XA Walked into wall, initial encounter
CPT/HCPCS: 70498; 80053; 93005; 96361; 96374; 96375; 99285; 70450; 72040; 72125; 73030; 74177; 85025; 93010; 99284; J0131; J1100; J2405; J3490

== ENCOUNTER 2022-12-11 09:52 | Outpatient (REF) | payer MEDICAID, SELFPAY ==
[2022-12-11 14:41] LABS: HCT 40.8 % (40.0-50.0); HGB 13.5 g/dL (13.5-17.5); MCH 28.3 pg (27.0-33.0); MCHC 33.1 % (32.0-36.0); MCV 86 fL (80-95); Platelet Count 201 10^3/uL (130-400); RBC 4.77 10^6/uL (4.36-5.78); RDW 15.9 % (11.8-14.1); RDW-SD 49.3 fL; WBC 9.28 10^3/uL (4.4-10.8)
[2022-12-11 16:28] LABS: ALT 87 U/L (16-63); AST 58 U/L (15-37); Albumin 3.8 g/dL (3.4-5.0); Alkaline Phosphatase 111 U/L (46-116); Anion Gap 10.2 mmol/L (3-11); BUN 11 mg/dL (7-18); Bilirubin, Total 1.5 mg/dL (0.2-1.0); CO2 25.8 mmol/L (21.0-32.0); Calcium 9.5 mg/dL (8.5-10.1); Chloride 102 mmol/L (98-107); Glucose 107 mg/dL (74-106); Sodium 138 mmol/L (136-145); TSH (W/Ref FT4) 2.44 uIU/mL (0.36-3.74); Total Protein 7.5 g/dL (6.4-8.2)
== END 2022-12-11 09:53 | disposition home or self-care (01) ==
LOC: NCHCN 09:52
PROVIDERS: PCP Family Medicine; Visit Provider Family Medicine
DX: R63.4 Abnormal weight loss (principal); E66.8 Other obesity; R10.32 Left lower quadrant pain
CPT/HCPCS: 80053; 85027; 84443

== ENCOUNTER 2022-12-25 01:03 | Outpatient (CLI) | payer MEDICAID, SELFPAY ==
--- NOTE | 2022-12-25 | DI.US_ITS ---
Exam(s) US ABDOMEN EXAM: US ABDOMEN CLINICAL HISTORY: LLQ PAIN R10.32 ELEVATED LIVER ENZYME LIVER GALLBLADDER PANCREAS TECHNIQUE: Ultrasound abdomen performed using standard protocol. COMPARISON: CT CT ABDOMEN PELVIS W from 11/22/2022 FINDINGS: ABDOMINAL AORTA AND IVC: Visualized portions normal caliber. PANCREAS: Normal where visualized. LIVER: There is increased echogenicity of the liver. The liver measures 17.4 cm long. Hepatopedal f low in the Portal Vein. GALLBLADDER:No evidence of cholelithiasis. No evidence of wall thickening. No pericholecystic fluid i dentified. BILIARY SYSTEM: Common bile duct measures < 7 mm. No intrahepatic biliary ductal dilation. LOVING'S SIGN: Negative. KIDNEYS: Kidneys are symmetric in size. No evidence of renal calculi. No evidence of hydronephrosis. No renal mass or cyst identified. SPLEEN: The spleen measures 16.3 cm long. ASCITES: None seen. IMPRESSION: 1. Fatty infiltration of the liver. 2. Splenomegaly. DATA REPOSITORY:
== END 2022-12-25 01:23 ==
LOC: DI 01:03
PROVIDERS: PCP Family Medicine; Visit Provider Family Medicine
DX: R10.32 Left lower quadrant pain (principal); K76.0 Fatty (change of) liver, not elsewhere classified; R16.1 Splenomegaly, not elsewhere classified
CPT/HCPCS: 76700

== ENCOUNTER 2023-01-27 12:25 | Outpatient (REF) | payer MEDICAID, SELFPAY ==
[2023-01-27 15:36] LABS: ALT 48 U/L (16-63); AST 24 U/L (15-37); Albumin 4.1 g/dL (3.4-5.0); Alkaline Phosphatase 87 U/L (46-116); Anion Gap 3.6 mmol/L (3-11); BUN 14 mg/dL (7-18); Bilirubin, Total 0.8 mg/dL (0.2-1.0); CO2 30.4 mmol/L (21.0-32.0); CREATININE 0.9 mg/dL (0.70-1.30); Calcium 9.4 mg/dL (8.5-10.1); Chloride 105 mmol/L (98-107); Estimated GFR 112.11 (mL/min/1.73m2); Glucose 128 mg/dL (74-106); Potassium 4.9 mmol/L (3.5-5.1); Sodium 139 mmol/L (136-145); Total Protein 7.7 g/dL (6.4-8.2)
== END 2023-01-27 12:26 | disposition home or self-care (01) ==
LOC: NCHCN 12:25
PROVIDERS: PCP Family Medicine; Visit Provider Family Medicine
DX: R16.0 Hepatomegaly, not elsewhere classified (principal); K76.0 Fatty (change of) liver, not elsewhere classified
CPT/HCPCS: 80053

== ENCOUNTER 2023-12-17 10:23 | Outpatient (REF) | payer MEDICAID, SELFPAY ==
[2023-12-17 16:19] LABS: Hemoglobin A1C 5.7 % (<5.7)
[2023-12-17 21:08] LABS: ALT 52 U/L (16-63); AST 27 U/L (15-37); Albumin 4.2 g/dL (3.4-5.0); Alkaline Phosphatase 84 U/L (46-116); BUN 15 mg/dL (7-18); Bilirubin, Total 0.7 mg/dL (0.2-1.0); CO2 27.2 mmol/L (21.0-32.0); CREATININE 0.9 mg/dL (0.70-1.30); Calcium 9.5 mg/dL (8.5-10.1); Calculated LDL 163 mg/dL (<100); Chloride 105 mmol/L (98-107); Cholesterol 251 mg/dL (<200); Estimated GFR 111.42 (mL/min/1.73m2); Glucose 122 mg/dL (74-106); HDL Cholesterol 50 mg/dL (40-60); Potassium 4.3 mmol/L (3.5-5.1); Total Protein 7.6 g/dL (6.4-8.2); Triglyceride 194 mg/dL (<150)
[2023-12-17 21:19] LABS: Anion Gap 9.8 mmol/L (3-11); Sodium 142 mmol/L (136-145)
[2023-12-17 22:17] LABS: Uric Acid 8.1 mg/dL (3.5-7.2)
== END 2023-12-17 10:24 | disposition home or self-care (01) ==
LOC: NCHCN 10:23
PROVIDERS: PCP Family Medicine; Visit Provider Family Medicine
DX: Z00.00 Encounter for general adult medical examination without abnormal findings (principal); M10.9 Gout, unspecified; R79.89 Other specified abnormal findings of blood chemistry; Z13.1 Encounter for screening for diabetes mellitus; Z13.220 Encounter for screening for lipoid disorders
CPT/HCPCS: 80053; 80061; 83036; 84550

== ENCOUNTER 2024-08-02 13:27 | Outpatient (CLI) | payer MEDICAID, SELFPAY ==
--- NOTE | 2024-08-02 10:51 | DI.RAD_ITS ---
Exam(s) XR SHOULDER LT COMPLETE 2+V EXAM: XR SHOULDER LT COMPLETE 2+V CLINICAL HISTORY: Lt shoulder pain. TECHNIQUE: 2D digital imaging was performed. COMPARISON: CR,XR XR SHOULDER LT COMPLETE 2+V from 11/22/2022 FINDINGS: Five views No evidence of fracture or dislocation or abnormal soft tissue calcifications. Subacromial space sal ears unremarkable and there are no obvious degenerative changes in the glenohumeral and AC joints. C lavicle appears unremarkable. Coracoid process unremarkable. Bone density is normal. No osseous le sions. IMPRESSION: No significant radiograph findings in the left shoulder. DATA REPOSITORY: RADIATION DOSE DELIVERED:
== END 2024-08-02 13:47 ==
PROVIDERS: PCP Family Medicine; Visit Provider Nurse Practitioner Family
DX: M25.512 Pain in left shoulder (principal)
CPT/HCPCS: 73030

== ENCOUNTER 2025-05-25 20:22 | Outpatient (REF) | payer MEDICAID, SELFPAY ==
[2025-05-25 21:00] LABS: Hemoglobin A1C 5.5 % (<5.7)
[2025-05-25 21:05] LABS: ALT 38 U/L (16-63); AST 33 U/L (15-37); Albumin 4.1 g/dL (3.4-5.0); Alkaline Phosphatase 96 U/L (46-116); Anion Gap 7.3 mmol/L (3-11); BUN 12 mg/dL (7-18); Bilirubin, Total 0.6 mg/dL (0.2-1.0); CO2 32.7 mmol/L (21.0-32.0); Calcium 9.5 mg/dL (8.5-10.1); Calculated LDL 167 mg/dL (<100); Chloride 102 mmol/L (98-107); Cholesterol 250 mg/dL (<200); Estimated GFR 114.74 (mL/min/1.73m2); Glucose 100 mg/dL (74-106); HDL Cholesterol 43 mg/dL (>or=40); Potassium 4.2 mmol/L (3.5-5.1); Sodium 142 mmol/L (136-145); Total Protein 8.1 g/dL (6.4-8.2); Triglyceride 204 mg/dL (<150)
== END 2025-05-25 20:23 | disposition home or self-care (01) ==
LOC: NCHCN 20:22
PROVIDERS: PCP Family Medicine; Referring Provider Family Medicine; Visit Provider Family Medicine
DX: E66.9 Obesity, unspecified (principal); R73.03 Prediabetes
CPT/HCPCS: 80053; 80061; 83036